=== PATIENT | male | born 1965 | race Hispanic/Latino ===

== ENCOUNTER 2017-08-17 14:58 | Emergency (ER) | payer MEDICARE ==
[2017-08-17] MEDS ORDERED: Lidocaine/Prilocaine 2.5%-2.5% Cream (5 gm) TOP STA (16:06)
[2017-08-17 16:24] LABS: BASO # 0.1 K/uL (0.0-0.2); EOS # 0.4 K/uL (0.0-0.7); EOS % 5.7 % (0.0-4.0); HEMATOCRIT 35.2 % (35.0-51.0); LYMPH % 30.1 % (20.0-40.0); MEAN CELL VOLUME 76.9 fL (80.0-94.0); MEAN CORPUSCULAR HEMOGLOBIN 25.2 pg (27.0-31.0); MEAN CORPUSCULAR HGB CONC 32.8 g/dL (33.0-37.0); MONO # 0.5 K/uL (0.0-0.8); MONO % 7.3 % (0.0-10.0); NRBC % 0.1 % (0.0-2.0); RED CELL DISTRIBUTION WIDTH 16.8 % (11.5-14.5); WHITE BLOOD COUNT 6.6 K/uL (4.8-10.8)
[2017-08-17 16:40] LABS: BILIRUBIN,TOTAL 0.7 mg/dL (0.2-1.3); CALCIUM 9.4 mg/dl (8.6-10.4); TOTAL PROTEIN 9.2 g/dL (6.3-8.3)
[2017-08-17 16:44] LABS: ALB/GLOB RATIO 0.8 (1.0-2.1); POTASSIUM 4.5 mmol/L (3.6-5.2)
--- NOTE | 2017-08-17 17:34 | C.PDOC ---
Time Seen by Provider: 08/17/17 15:09 Chief Complaint (Nursing): Abnormal Skin Integrity History Per: Patient Onset/Duration Of Symptoms: Days (few) Current Symptoms Are (Timing): Still Present Location Of Injury: Left: Forearm Quality Of Symptoms: Painful, Swollen Severity: Moderate Additional History Per: Prior Records Past Medical History Reviewed: Historical Data, Nursing Documentation, Vital Signs Vital Signs: Last Vital Signs Temp 97.9 F 08/17/17 15:01 Pulse 90 08/17/17 15:01 Resp 16 08/17/17 15:01 BP 115/74 08/17/17 15:01 Pulse Ox 100 08/17/17 15:01 - Medical History PMH: Depression, HTN, Chronic Kidney Disease, Seizures, Chronic Pain ("lower back") Other Surgeries: Liver transplant Family History: States: Unknown Family Hx - Social History Hx Tobacco Use: Yes Hx Alcohol Use: No Hx Substance Use: No - Immunization History Hx Tetanus Toxoid Vaccination: No Hx Influenza Vaccination: No Hx Pneumococcal Vaccination: No Review Of Systems Except As Marked, All Systems Reviewed And Found Negative. Constitutional: Negative for: Fever, Chills, Weakness Cardiovascular: Negative for: Chest Pain Respiratory: Negative for: Shortness of Breath Gastrointestinal: Negative for: Vomiting, Abdominal Pain Musculoskeletal: Negative for: Neck Pain Skin: Positive for: Lesions Neurological: Negative for: Weakness, Numbness Physical Exam - Physical Exam Appears: Non-toxic, No Acute Distress Skin: Warm, Dry Head: Atraumatic, Normacephalic Eye(s): bilateral: PERRL, EOMI Neck: Normal ROM, Supple Cardiovascular: Rhythm Regular Respiratory: Normal Breath Sounds, No Accessory Muscle Use Gastrointestinal/Abdominal: Soft, No Tenderness Back: No CVA Tenderness Extremity: Normal ROM, Other (3 cm abscess on left forearm. Pt has previous abscesses in different stages of healing on extremities.) Pulses: Left Radial: Normal Neurological/Psych: Oriented x3, Normal Motor, Normal Sensation ED Course And Treatment - Laboratory Results Result Diagrams: 08/17/17 16:21 08/17/17 16:21 Lab Interpretation: No Acute Changes O2 Sat by Pulse Oximetry: 100 Pulse Ox Interpretation: Normal - Incision & Drainage Of Abscess Prep Used: Betadine Procedure: Incised W/Scalpel Blade#: (11), Drained Pus, Probed To Break Up Loculations, Cultures Obtained And Sent To Lab Disposition Counseled Patient/Family Regarding: Studies Performed, Diagnosis, Need For Followup, Rx Given - Disposition Disposition: HOME/ ROUTINE Disposition Time: 17:35 Condition: STABLE Additional Instructions: Return to the ER in 2-3 days for a wound check and to follow up the results of your cultures. Return to the ER immediately if you develop fever, chills, worsening of symptoms or if you have any other concerns. Prescriptions: Clindamycin [Cleocin] 300 mg PO QID #40 cap Instructions: Abscess Incision and Drainage (ED) - Clinical Impression Clinical Impression: Abscess of left forearm
[2017-08-17 18:17] VITALS: BP 134/78; PULSE 86; RESP 18; TEMP 98.1; O2SAT 98
== END 2017-08-17 18:05 | disposition home or self-care (01) ==
LOC: C.ER 14:58
DX: L02.414 Cutaneous abscess of left upper limb (principal)

== ENCOUNTER 2017-08-20 11:26 | Emergency (ER) | payer MEDICARE ==
[2017-08-20 11:39] VITALS: RESP 18; TEMP 97.9
--- NOTE | 2017-08-20 12:48 | C.PDOC ---
History Of Present Illness 52 yo male with PMH of HTN, CKD, and liver transplant (2008 s/p hepatitis and cirrhosis) came in for a wound check. Pt notes that three weeks ago he was moving "a jayant pipe thing" which it broke and fell on his left foot and left arm. Two week afterwards, he noticed he had an abscess to his left foot, he was admitted to [facility] for one week and treated with antibiotics. Pt also notes he had recent [facility] blood draws from which he has additional abscesses. Also notes he had an MRI done with was "normal". He was discharged from the hospital in on 08/13/17 but the wound to his left arm worsened prompting ED visit on 08/17/17. He had an I&D, was given clindamycin but lost it. Notes he finished the previous antibiotics he was given instead. PT states the wound has gotten smaller, redness has not worsened. DEnies fever. Denies IVDA in "years." Pt is not up to date on tetanus. Time Seen by Provider: 08/20/17 11:52 Chief Complaint (Nursing): Wound Check History Per: Patient History/Exam Limitations: no limitations Onset/Duration Of Symptoms: Days Ago Quality Of Symptoms: Painful, Draining Past Medical History Vital Signs: Last Vital Signs Temp 97.9 F 08/20/17 11:36 Pulse 68 08/20/17 14:09 Resp 18 08/20/17 14:09 BP 108/65 08/20/17 14:09 Pulse Ox 98 08/20/17 14:09 - Medical History PMH: Depression, HTN, Chronic Kidney Disease, Seizures, Chronic Pain ("lower back") Family History: States: Unknown Family Hx - Social History Hx Tobacco Use: Yes Hx Alcohol Use: No Hx Substance Use: No - Immunization History Hx Tetanus Toxoid Vaccination: No Hx Influenza Vaccination: No Hx Pneumococcal Vaccination: No Review Of Systems Except As Marked, All Systems Reviewed And Found Negative. Skin: Positive for: Rash Physical Exam - Physical Exam Appears: Well, Non-toxic, No Acute Distress Skin: Warm, Dry, Other ((+) Left forearm: 3 cm area of erythema with central open wound and surrounding induration, no packing, no fluctuance. Four additional <1 cm areas of ertyhema and swelling to b/l upper extremities, no fluctuancem, no drainage. (+) < 1 cm area of erythema with healing incision to the left foot , no flutucance ) Head: Atraumatic, Normacephalic Eye(s): bilateral: Normal Inspection, EOMI Nose: Normal Oral Mucosa: Moist Neck: Normal, Normal ROM, Supple Chest: Symmetrical Cardiovascular: Rhythm Regular Respiratory: Normal Breath Sounds Back: Normal Inspection Extremity: Normal ROM, No Pedal Edema Neurological/Psych: Oriented x3, Normal Speech ED Course And Treatment O2 Sat by Pulse Oximetry: 97 Progress Note: 13:00 [address] pt's transplant physician Dr. Bijal Oglesby, first attempt. 13:[address] Oglesby' office, second attempt. Dr. Fenton called back, who notes it is ok to give patient tetanus shot, and he can follow up with his doctor as scheduled. Had no further recommendations given. CAse discussed and pt evaluated by Dr Morales, agreed upon treatment and discharge. Pt verbalized understanding, instructed to return in 2 days for wound check. Labs given from previosu visit. - Physician Consult Information Time Consulting Physician Contacted: 13:48 Physician Contacted: Vamsi Fenton Disposition - Disposition Disposition: HOME/ ROUTINE Disposition Time: 13:50 Condition: STABLE Additional Instructions: Follow up with your primary medical doctor or clinic in 2-5 days for further evaluation. Take medications as prescribed. Return to the emergency department at any time if symptoms persist or worsen. Prescriptions: Clindamycin [Cleocin] 300 mg PO QID #28 cap Instructions: Abscess Incision and Drainage (ED) Forms: [employer] (Danish) - Clinical Impression Clinical Impression: Abscess
[2017-08-20] MEDS ORDERED: Tetanus/Diphtheria Toxoids 0.5 ml Syringe IM ONE ×2 (13:49→13:56)
[2017-08-20] MEDS ORDERED: Bacitracin 500 Units/gm Oint Foilpak UD TOP ONE (13:53)
[2017-08-20] MEDS ORDERED: Bacitracin 500 Units/gm Oint Foilpak UD ONE (14:00)
[2017-08-20 14:10] VITALS: BP 108/65; PULSE 68
[2017-08-20 14:45] VITALS: O2SAT 97
== END 2017-08-20 14:13 | disposition home or self-care (01) ==
LOC: C.ER 11:26
DX: L02.414 Cutaneous abscess of left upper limb (principal); Z23 Encounter for immunization